=== PATIENT | male | born 1975 | race Caucasian/White ===

== ENCOUNTER 2023-03-01 20:29 | Emergency (ER) | payer SELFPAY ==
[~2023-03-01] VITALS: Ht 188 cm; Wt 77.3 kg
[2023-03-01] MEDS ORDERED: HYDROcodone/acetaminophen 10/325mg tab PO STA (20:41)
--- NOTE | 2023-03-01 21:02 | NUR ---
spoke with dr burgess regarding this patient and orders that I placed using xray protocol and sepsis protocol. dr burgess agreed with giving norco 10/325 for pain relief. pt moved from lobby to room 17 for cardiac monitoring and iv placement.
[2023-03-01] MEDS ORDERED: NO HOME MEDS (21:04)
[2023-03-01 21:26] LABS: BASOPHILS % (AUTO) 0 % (0-1); EOSINOPHILS % (AUTO) 0.1 % (0-6); HEMATOCRIT 44.9 % (42.0-52.0); HEMOGLOBIN 15.2 g/dl (14.0-17.9); LYMPHOCYTES # (AUTO) 1.3 X10'3 (1.1-4.8); LYMPHOCYTES % (AUTO) 7.4 % (21-51); MEAN CORPUSCULAR HEMOGLOBIN 31.6 PG (27.0-31.0); MEAN CORPUSCULAR HGB CONC 33.9 g/dL (33.0-36.5); MEAN CORPUSCULAR VOLUME 93.1 FL (78-98); MEAN PLATELET VOLUME 8.2 FL (7.4-10.4); MONOCYTES # (AUTO) 1.5 X10'3 (0-0.9); MONOCYTES % (AUTO) 8.6 % (2-12); NEUTROPHILS # (AUTO) 15.1 X10'3 (1.8-7.7); NEUTROPHILS % (AUTO) 83.9 % (42-75); PLATELET COUNT 286 X10'3 (140-440); RED BLOOD COUNT 4.82 X10'6 (4.70-6.10); RED CELL DISTRIBUTION WIDTH 12.8 % (11.5-14.5); WHITE BLOOD COUNT 17.9 X10'3 (4.5-11.0)
[2023-03-01 21:28] LABS: ALANINE AMINOTRANSFERASE 26 U/L (12-78); ALBUMIN/GLOBULIN RATIO 0.7 (1.1-1.5); ALKALINE PHOSPHATASE 113 IU/L (46-116); ANION GAP 4 (8-16); ASPARTATE AMINO TRANSFERASE 21 U/L (10-37); BILIRUBIN,TOTAL 0.7 MG/DL (0.1-1.0); BLOOD UREA NITROGEN 15 MG/DL (7-18); BUN/CREATININE RATIO 13.8 (10.0-20.0); CALCIUM 9.1 MG/DL (8.5-10.1); CHLORIDE 98 MMOL/L (99-107); CREATININE 1.09 MG/DL (0.60-1.10); GLUCOSE 124 MG/DL (70-104); POTASSIUM 3.9 MMOL/L (3.5-5.1); SODIUM 132 MMOL/L (135-145); TOTAL CARBON DIOXIDE 29.9 MMOL/L (24-32); TOTAL PROTEIN 7.4 G/DL (6.4-8.2); eCRCL 90 ML/MIN; eGFR 72 ML/MIN
[2023-03-01] MEDS ORDERED: piperacillin/tazo 3.375gm/50ml 50 ML IV ONE (21:30)
[2023-03-01] MEDS ORDERED: normal saline 1000ML IV soln IV ONE (21:30)
--- NOTE | 2023-03-01 21:31 | NUR ---
SPOKE WITH DR DREW REGARDING POSSIBLE SEPSIS. RECIEVED ORDERS FOR ZOSYN AND 30ML/KG NS BOLUS.
[2023-03-01] MEDS ORDERED: vancomycin/NS 1 GM ADD-VANTAGE 250 ML IV ONE (22:10)
[2023-03-01] MEDS ORDERED: DOXY100T56 PO (22:12)
[2023-03-01] MEDS ORDERED: CEPH250T PO (22:12)
--- NOTE | 2023-03-02 00:51 | NUR ---
pt leaving AMA due to not wanting to be admitted into the hospital. pt spoke with dr lindsey. AMA form signed, bandage material sent home with pt. per dr lindsey, UA not needed.
--- NOTE | 2023-03-02 00:54 | NUR ---
called [employer] for ride back to pt hotel. eta 25min.
[2023-03-02 00:55] VITALS: BP 113/66; PULSE 101; RESP 16; TEMP 99.1; O2SAT 98
== END 2023-03-02 00:56 | disposition left against medical advice (07) ==
LOC: ER 20:30
DX: L03.114 Cellulitis of left upper limb (principal)
CPT/HCPCS: 36415; 73080; 80053; 83605; 84145; 85025; 87040; 96365; 96366; 96368; 99285; J2543; J3370; J7030; J7040; 99284